=== PATIENT | female | born 1960 ===

== ENCOUNTER 2019-08-13 10:57 | Outpatient (CLI) | payer OTHER ==
[~2019-08-13 10:57] MED LIST: ADERAL; CLONAZEPAM0.125 MG/T; RISPERDAL2 MG; RISPERDAL2 MG PO; XANAX0.25 MG; XANAX2 MG PO
== END 2019-08-13 11:17 | disposition home or self-care (01) ==
LOC: NUCLEAR 10:57
DX: D69.3 Immune thrombocytopenic purpura (principal)
CPT/HCPCS: 78215; A9541